=== PATIENT | female | born 1960 | race Caucasian/White ===

== ENCOUNTER 2016-09-02 18:12 | Emergency (ER) | payer MEDICAID ==
[~2016-09-02] VITALS: Ht 165.1 cm; Wt 98.9 kg
[2016-09-02 19:54] LABS: PLATELET COUNT 151 x10^3mcL (130-400)
[2016-09-02 19:55] LABS: RED CELL DISTRIBUTION WIDTH 17.8 % (11.5-14.5)
[2016-09-02 20:08] LABS: CALCIUM 10.2 mg/dL (8.5-10.1); CARBON DIOXIDE 31.1 mmol/L (21-32); CREATININE SERUM 1.1 mg/dL (0.6-1.0); POTASSIUM SERUM 3.7 mmol/L (3.5-5.1)
[2016-09-02 20:15] LABS: ALBUMIN 2.2 g/dL (3.4-5.0); BILIRUBIN TOTAL 0.72 mg/dL (0.20-1.00); TOTAL PROTEIN, SERUM 7.5 g/dL (6.4-8.2)
[2016-09-02 21:02] VITALS: BP 128/74
== END 2016-09-02 21:02 | disposition home or self-care (01) ==
LOC: ED 18:12
PROVIDERS: Emergency Medicine
DX: K29.70 Gastritis, unspecified, without bleeding (principal); K59.00 Constipation, unspecified; C22.0 Liver cell carcinoma; Z88.1 Allergy status to other antibiotic agents
CPT/HCPCS: 83880; J2405; J3010

== ENCOUNTER 2016-10-26 14:09 | Emergency (ER) | payer MEDICAID ==
[2016-10-26 18:07] VITALS: BP 126/55
== END 2016-10-26 18:07 | disposition home or self-care (01) ==
LOC: ED 14:09
DX: S46.912A Strain of unspecified muscle, fascia and tendon at shoulder and upper arm level, left arm, initial encounter (principal); S76.012A Strain of muscle, fascia and tendon of left hip, initial encounter; S39.012A Strain of muscle, fascia and tendon of lower back, initial encounter; I10 Essential (primary) hypertension; E03.9 Hypothyroidism, unspecified; C78.7 Secondary malignant neoplasm of liver and intrahepatic bile duct; Z98.890 Other specified postprocedural states; W01.0XXA Fall on same level from slipping, tripping and stumbling without subsequent striking against object, initial encounter; Y93.89 Activity, other specified; Y92.89 Other specified places as the place of occurrence of the external cause; Y99.8 Other external cause status
CPT/HCPCS: J1885; J3010; Q0162

== ENCOUNTER 2016-12-20 15:05 | Inpatient (IN) | payer OTHER ==
[~2016-12-20] VITALS: Ht 160 cm; Wt 79.5 kg
--- NOTE | 2016-12-20 15:36 | NUR ---
NO SIGNS OF RESP DISTRESS NOTED AT THIS TIME, NO ACTIVE VOMITING. TO ER LOBBY VIA WHEELCHAIR.
--- NOTE | 2016-12-20 17:02 | NUR ---
pt placed on bsc to attempt to provide urine sample.
--- NOTE | 2016-12-20 17:35 | NUR ---
MSE COMPLETED BY DR. BUITRAGO
--- NOTE | 2016-12-20 18:07 | NUR ---
PT AND PTS FAMILY REFUSING ALL XRAYS AND CT SCANS DUE TO THE PT HX OF CANCER. PT REPORTS THAT LAST MONTH SHE ALREADY RECEIVED A CT SCAN. PT CAME INTO THE ED TODAY WITH THE COMPLAINT OF NAUSEA AND VOMITING SINCE YESTERDAY AND DIARRHEA X 2 DAYS. THE PT RPEORTS ALL OF THESE SYMPTOMS BEGAN APPROXIMATELY ONE HOUR AFTER EATING TACO MILLAN AND DRINKING ORANGE JUICE WHICH WAS IN A CAR FOR 2 DAYS[address] BUITRAGO
--- NOTE | 2016-12-20 18:15 | NUR ---
PT REFUSING STRAIGHT CATH AT THIS TIME AND WILL ATTEMPT TO URINATE ROSA. PT REQUESTING WATER BUT I INFORMED THAT PT THAT SHE CANNOT HAVE ANY PO FLUIDS UNTIL SHE DOES NOT HAVE ANY NAUSEA OR EPISODES OF EMESIS.
[2016-12-20 19:05] LABS: BILIRUBIN TOTAL 2.8 mg/dL (0.20-1.00); CALCIUM 9.4 mg/dL (8.5-10.1); CARBON DIOXIDE 18.9 mmol/L (21-32); CREATININE SERUM 2.2 mg/dL (0.6-1.0); TOTAL PROTEIN, SERUM 7.5 g/dL (6.4-8.2)
[2016-12-20 19:06] LABS: ALBUMIN 2.1 g/dL (3.4-5.0); CHOLESTEROL/HDL RATIO 12.2
[2016-12-20 19:08] LABS: POTASSIUM SERUM 5.9 mmol/L (3.5-5.1)
--- NOTE | 2016-12-20 19:10 | NUR ---
PT REMAINS RESTING IN A POSITION OF COMFORT IN LOW POSITIONED BED WITH SIDE RAILS UP X 2 AND CALL LIGHT WITHIN REACH
[2016-12-20 19:25] LABS: BASOPHIL % 0.4 % (0-2); PLATELET COUNT 138 x10^3mcL (130-400)
--- NOTE | 2016-12-20 19:25 | NUR ---
DR SHIRLEY AT BEDSIDE TO DISCUSS PLAN OF CARE.
[2016-12-20 19:28] LABS: RED CELL DISTRIBUTION WIDTH 19.7 % (11.5-14.5)
[2016-12-20 19:42] LABS: T3 TOTAL 0.67 ng/mL
[2016-12-20 19:53] LABS: FREE T4 1.59 ng/dL (0.76-1.46); FREE THYROXINE INDEX 3.4 ug/dL (1.4-4.5); T4(THYROXINE) 10.4 ug/dL (4.7-13.3)
[2016-12-20] MEDS ORDERED: LASIX40 MG PO (20:17)
[2016-12-20] MEDS ORDERED: SINGULAIR10 MG PO (20:18)
[2016-12-20] MEDS ORDERED: SYNTHROID0.112 MG PO (20:19)
--- NOTE | 2016-12-20 20:21 | NUR ---
FAMILY # PAT [phone] ; AARON [phone]. PER PT, OK TO GIVE INFORMATION.
[2016-12-20 20:24] LABS: MAGNESIUM 2.3 mg/dL (1.8-2.4); PHOSPHOROUS 5.5 mg/dL (2.5-4.9)
[2016-12-20] MEDS ORDERED: OXYC (20:29)
--- NOTE | 2016-12-20 20:29 | NUR ---
REPORT GIVEN TO GUY
--- NOTE | 2016-12-20 21:00 | NUR ---
REC'D PT RESTING IN BED. PT IS AAOX4. TELE #3 NSR. LUNG SOUNDS CLEAR. NO SOB NOTED. TRACE EDEMA NOTED TO BLE. BS ACTIVE X4. ABD SOFT AND DISTENDED. PT C/O 8/10 ABD PAIN AND NAUSEA. GENERALIZED WEAKNESS NOTED. USES W/C OR WALKER AT HOME. ECCHYMOSIS NOTED TO BUE. IV NOTED TO RAC AND LH. INTACT AND PATENT. ORIENTED PT TO CALL LIGHT. BED IN LOWEST POSITION. WILL ENDORSE TO PRIMARY RN.
[2016-12-20 21:09] VITALS: BP 119/53
--- NOTE | 2016-12-20 21:42 | NUR ---
PATIENT SITTING AT BEDSIDE WITH RESIDENT IN ROOM THIS TIME CHECKING PATIENT CONDITION. STARTED WITH IV NS INFUSING AT 100ML/HR. NO SIGN OF ACUTE DISTRESS NOTED, BREATHING EASY AND NONLABOR. WILL CONTINUE TO MONITOR. CALL LIGHT WITHIN REACH.
--- NOTE | 2016-12-20 23:30 | NUR ---
CRITICAL LAB RESULT- LACTIC ACID 4.1 DR MCGOVERN MADE AWARE.
--- NOTE | 2016-12-20 23:41 | NUR ---
C/O ABDOMINAL PAIN AR SCALE OF 7/10 PER PATIENT, MEDICATED WITH MORPHINE 2MG IVP PRESCRIBED. WILL CONTINUE TO MONITOR.
--- NOTE | 2016-12-21 00:03 | NUR ---
HAD BM X4 LOOSE AFTER LACTULOSE GIVEN IN ER.
[2016-12-21 00:24] LABS: CALCIUM 10.1 mg/dL (8.5-10.1); CARBON DIOXIDE 18.6 mmol/L (21-32); CREATININE SERUM 2.2 mg/dL (0.6-1.0); POTASSIUM SERUM 4.2 mmol/L (3.5-5.1)
--- NOTE | 2016-12-21 05:12 | NUR ---
HAD BM X5 LOOSE AFTER PATIENT HAD LACTULOSE TAKEN IN ER. CHECKED AT INTERVALS FOR NEEDS AND SAFETY. ALL NEEDS ATTENDED.
[2016-12-21 06:15] VITALS: BP 114/52
--- NOTE | 2016-12-21 07:45 | NUR ---
RECEIVED THE PATIENT AWAKE AND ORIENTED PERSON, PLACE AND TIME. PATIENT DENIED PAIN OR SHORTNESS OF BREATH AT THIS TIME. IVF NS VIA H/L TO RAC. ANOTHER H/L TO LEFT HAND. TELE # 3 READS SINUS RHYTHMS. CALL LIGHT WITHIN REACH. SIDE RAILS UP X3. BED WAS AT LOWEST POSITION.
[2016-12-21 07:56] LABS: CALCIUM 9.8 mg/dL (8.5-10.1); CARBON DIOXIDE 21.5 mmol/L (21-32); CREATININE SERUM 1.8 mg/dL (0.6-1.0); POTASSIUM SERUM 3.3 mmol/L (3.5-5.1)
[2016-12-21 08:23] LABS: BASOPHIL % 0.9 % (0-2)
[2016-12-21 08:25] LABS: PLATELET COUNT 119 x10^3mcL (130-400); RED CELL DISTRIBUTION WIDTH 19.9 % (11.5-14.5)
[2016-12-21 09:27] VITALS: BP 110/64
--- NOTE | 2016-12-21 09:30 | NUR ---
DR. HUYNH AND THE TEAM WERE MAKING ROUND TO SEE THE PATIENT. THE CARE PLAN WAS DISCUSSED WITH THE PATIENT. THE PATIENT AGREED WITH THE PLAN.
[2016-12-21 09:33] VITALS: BP 110/56
--- NOTE | 2016-12-21 11:00 | NUR ---
THE IV SITE TO RAC WAS DISCLODGED WITH CATH INTACT. THE IV LINES WERE CONNECTED TO H/L AT LEFT HAND.
[2016-12-21 12:55] VITALS: BP 123/59
[2016-12-21 13:15] LABS: microscopic required? YES; urine erythrocyte NEGATIVE (NEGATIVE)
[2016-12-21 13:30] LABS: AMPHETAMINE QUAL UR NONE DETECTED (NEG <=1000)
[2016-12-21 16:59] VITALS: BP 119/48
--- NOTE | 2016-12-21 18:36 | NUR ---
THE PATIENT WAS RESTING IN BED WITHOUT DISTRESS NOTED AT THIS TIME. THE FAMILY MEMBERS AT BEDSIDE. PATIENT C/O ACHING TO BACK; NORCO 1 TAB WAS ADMINISTERED TO THE PATIENT BUT THE PAIN WAS NOT BETTER. THEREFORE, MORPHINE 2MG IVP WAS GIVEN TO THE PATIENT AFTER THAT WITH RELIEF.
--- NOTE | 2016-12-21 19:27 | NUR ---
RECEIVED PATIENT IN BED AWAKE ALERT AND ORIENTED WITH NO C/O ABDOMINAL DISCOMFORT THIS TIME. FAMILY MEMBERS AT BEDSIDE. TELE# 3,NSR ON MONITOR. ABDOMEN DISTENDED AND SOFT WITH ACTIVE BS. TRACED EDEMA NOTED TO BLE. CLEAR BS SATTING AT 98% RA. IV TO LH INTACT AND INFUSING WELL. WILL CONTINUE TO MONITOR. CALL LIGHT WITHIN REACH.
[2016-12-21 21:00] VITALS: BP 109/47
--- NOTE | 2016-12-21 23:23 | NUR ---
PATIENT REQUESTING SLEEPING PILLS, DR MCGOVERN MADE AWARE,WAITING FOR ORDERS.
--- NOTE | 2016-12-22 01:59 | NUR ---
SLEEPING THIS TIME AFTER SLEEPING PILLS AMBIEN PO WAS GIVEN. WILL CONTINUE TO MONITOR.
[2016-12-22 05:07] VITALS: BP 121/52
--- NOTE | 2016-12-22 05:10 | NUR ---
SLEPT AT LONG INTERVALS, HAD BM X1 . DENIES PAIN THE ENTIRE SHIFT. ALL NEEDS ATTENDED.
[2016-12-22 07:32] LABS: BASOPHIL % 0.2 % (0-2)
[2016-12-22 07:44] LABS: PLATELET COUNT 112 x10^3mcL (130-400); RED CELL DISTRIBUTION WIDTH 19.4 % (11.5-14.5)
--- NOTE | 2016-12-22 07:46 | NUR ---
MICROBIOLOGY CALLED: PT IS MRSA POSITIVE NARES. WILL NOTIFY RESIDENT DURING ROUNDS. A+OX4, DENIES PAIN, NAUSEA, SOB, AND HEADACHE, TELE #3, NSR, TRACE EDEMA BLE, SCDS IN PLACE, LUNG SOUNDS CLEAR, TOLERATING ROOM AIR, BOWEL SOUNDS ACTIVE, ABDOMEN DISTENDED AND SOFT, USES BEDSIDE COMMODE, GENERALIZED WEAKNESS, USES WHEELCHAIR/WALKER, ECCHYMOSIS BUE, IV IN LH WITH NS @ 10 ML/HR, SITE WNL, PLT 112.
[2016-12-22 08:04] LABS: CARBON DIOXIDE 22.6 mmol/L (21-32); CREATININE SERUM 1.7 mg/dL (0.6-1.0); MAGNESIUM 1.9 mg/dL (1.8-2.4); PHOSPHOROUS 3.8 mg/dL (2.5-4.9); POTASSIUM SERUM 4.5 mmol/L (3.5-5.1)
[2016-12-22 09:00] VITALS: BP 136/96; BP 99/49
--- NOTE | 2016-12-22 10:19 | NUR ---
PT RESTING IN BED, NO RESPIRATORY DISTRESS NOTED, COMPLAINING OF 5/10 PAIN, NORCO GIVEN.
[2016-12-22 10:25] VITALS: Ht 160 cm; Wt 79.5 kg
[2016-12-22 11:28] VITALS: BP 119/94
[2016-12-22 12:00] VITALS: BP 94/41
--- NOTE | 2016-12-22 13:12 | NUR ---
PT RESTING IN BED, NO RESPIRATORY DISTRESS NOTED, DENIES PAIN, NAUSEA, SOB, AND HEADACHE. FAMILY AT BEDSIDE.
--- NOTE | 2016-12-22 14:49 | NUR ---
PT RESTING IN BED, NO RESPIRATORY DISTRESS NOTED, COMPLAINING OF PAIN, NORCO GIVEN.
--- NOTE | 2016-12-22 15:52 | NUR ---
PT RESTING IN BED, NO RESPIRATORY DISTRESS NOTED, PAIN HAS IMPROVED, DENIES SOB, NAUSEA, AND HEADACHE.
--- NOTE | 2016-12-22 16:17 | NUR ---
ASSISTED PT TO BEDSIDE COMMODE, CHANGED BED LINENS.
[2016-12-22 16:30] VITALS: BP 124/54
--- NOTE | 2016-12-22 17:46 | NUR ---
Initial Nutrition Assessment Dx: Acute renal failure, severe hyponatremia PMHx: HTN, Hypothyroidisim, Chronic back pain status post L4/L5 fusion. Liver carcinoma with bone mets PSHx: , L4/L5 fusion, hysterectomy Labs: Na:127L, Cl 97L, BL, A1C: 4.8, BUN:46H, Cr:1.7H, Alb:2.1L, T Bili: 2.8H, AST:591H, ALT:79H, TH, Chol:244H, LDL:178H, HDL:20L, Amylase:119H, Lipase:681H, Lac Acid:4.1H, Ammonia:118H, Alk Phos 558H Meds: Colace, Lactinex, Lactulose, Lipitor, Mylicon, Phoslo, Prilosec, NS IV, Zofran Diet: Regular PO Intake: (12/21) B: 50% L: 50% D: 100% (12/22) L: 80% Ht: 63in Wt: 175lb BMI: 31kg/m2 (Obese Class I) IBW: 115lb %IBW: 152% Adj BW: 130lb Estimated Dry Weight: 150 lb (per family after pt is status post paracentesis) Age: 56 y/o F Food Allergies: none Skin: Intact. Marvin 19 Edema: Trace on bilateral lower extremities GI: Last BM 12/22 Nursing Trigger: Unintentional weight loss >10lb in past month; Poor PO intake >3 days. Pt admitted with diagnosis of GI with nausea, vomiting possibly secondary to gastroenteritis per H&P notes. Current liver carcinoma with mets to bones, no current treatment per H&P notes. Positive for MRSA per progress note. business analytics intern interviewed pt who was noticeably swollen in the abdomen and who had difficulty with speech. Family member was present and analysis intern was able to obtain reliable information from her. Per pt due to ascites she gets stomach tapped 1x per week. Pt states not interested in treatment for CA. Appetite is fair some days and prefers eggs, cheese, and spaghetti. Pt stated is scared of chewing and choking, has not choked nor coughed but pt is cautious while eating. Problems with: N: Yes, x1 V: No D: No C: No Problems with: Chewing: Yes Swallowing: Yes Current Appetite: Poor-Fair Recent wt change: +25lb due to ascites (within a month) %wt change: 17% gain Vitamin/Supplement use: Milk thistle, Calcium, Ensure x3-4 per week Diet at home: Regular Physical activity: Uses walker or wheelchair Education: The supply chain intern encouraged pt to have small frequent meals with snacks in between. The analysis intern discussed benefits of oral supplement and pt agreeable to Boost Plus BID. Inside Upholsterer asked patient food preference to increase PO intake and asked for need of swallow evaluation, pt agreeable to evaluation and to mechanical soft, chopped meals. Estimated Nutritional Needs Based on: Estimated Dry Weight 150lb, 68.2kg Energy: 4407-5501 kcal/d (30-35 kcal/kg for Repletion and CA) Protein: 54-89 g/d (0.8-1.3 g/kg current liver CA without treatment and ascites) Fluid: 1364ml/d (20 ml/kg) or per doctor Nutrition Diagnosis: Increased nutritional needs related to catabolic state secondary to current liver CA with mets to bones as evidenced by AST 591, Alk Phos 558 and Ammonia 118. Intervention: 1. Recommend mechanical soft, chopped diet 2. Consider swallow evaluation per FINANCIAL SALES REPRESENTATIVE 3. Recommend Boost Plus BID (360kcal, 14g protein per serving) Monitor/ Evaluate: Goal: PO and supplement intake to meet at least 75% of estimated needs Monitor: PO intake and tolerance, Labs, GI function F/U in 3-5 days as Moderate risk 12/25-
--- NOTE | 2016-12-22 17:46 | NUR ---
1. Recommend mechanical soft, chopped diet 2. Consider swallow evaluation per TAPER AND FLOATER 3. Recommend Boost Plus BID (360kcal, 14g protein per serving)
--- NOTE | 2016-12-22 18:30 | NUR ---
PT RESTING IN BED, NO RESPIRATORY DISTRESS NOTED.
--- NOTE | 2016-12-22 19:54 | NUR ---
PT RECIEVED AAO EG RESP NO SOB,RED RESP NO SOB,HL TO THE LT HAND WITH THE SITE PATENT AND INTACT,PT WITH ECCHYMOSIS TO SY UPPER EXTRE,ABDO IS SOFT OBESE WITH ACTIV E BOWEL SOUNDS,HOB,KEPT CLEAN AND DRY TO TOUCH,PT HAS A BSC ABLE TO USE,BED WAS PUT IN THE LOW POSITION AND LOCKED AND MADE COMFORTABLE IN BED,WILL CONTINUE TO MONITOR.
[2016-12-22 21:01] VITALS: BP 102/55
[2016-12-23 05:43] VITALS: BP 108/54
--- NOTE | 2016-12-23 06:48 | NUR ---
PT HAD A RESTING NIGHT NO CHANGE IN CONDITION AT THIS TIME.KEPT CLEAN ANSD DRY TO TOUCH AND WILL CONTINUE TO MONITOR.
--- NOTE | 2016-12-23 07:20 | NUR ---
ALERT AND ORIENTED. HR 70. PULSES PRESENT, TRACE EDEMA BLE, CAP REFILL <3 SEC. NO SOB NOTED. LBM 12/22/16, REPORTED DIARRHEA, COMMODE AT BED SIDE. GENERALIZED WEAKNESS. ECCHYMOSIS TO BUE AND REDNESS ON RIGHT UPPER ARM.REPORTED PAIN 01/08. IV LH NOT WORKING WILL START NEW IV.
[2016-12-23 07:38] LABS: CALCIUM 8.9 mg/dL (8.5-10.1); CARBON DIOXIDE 19.7 mmol/L (21-32); CREATININE SERUM 1.3 mg/dL (0.6-1.0); MAGNESIUM 2.1 mg/dL (1.8-2.4); PHOSPHOROUS 2.7 mg/dL (2.5-4.9); POTASSIUM SERUM 3.9 mmol/L (3.5-5.1)
[2016-12-23 09:30] VITALS: BP 111/54
--- NOTE | 2016-12-23 11:15 | NUR ---
IV DC CATHETER INTACT. BED BATH DONE BY FIRESETTER, SITTING UP IN CHAIR AT BED SIDE. REPORTED BM, STOOL FORMED. BACK INTO BED WITH MINIMAL ASSIST. NO DISTRESS NOTED, FAMILY AT BEDSIDE.
[2016-12-23 11:49] LABS: BASOPHIL % 3.7 % (0-2); PLATELET COUNT 110 x10^3mcL (130-400); RED CELL DISTRIBUTION WIDTH 18.6 % (11.5-14.5)
--- NOTE | 2016-12-23 13:51 | NUR ---
UP TO BSC X 2. LOOSE WATERY STOOLS.
--- NOTE | 2016-12-23 16:06 | NUR ---
REQUESTING TO HAVE PAIN MEDICATION CHANGED TO PERCOCET 10/325MG. PAGED DR COLES. ASSISTED WITH REPOSITIONING.
--- NOTE | 2016-12-23 16:09 | NUR ---
SPOKE WITH DR COLES, MADE AWARE PATIENT REQUESTING PAIN MEDICATION CHANGED TO PERCOCET.
--- NOTE | 2016-12-23 16:22 | NUR ---
ALERT AND ORIENTED X 4. REPORTED PAIN 9/10, WAITING FOR PERCOCET ORDER. PATIENT REPORTED [employer] DOES NOT WORK.
--- NOTE | 2016-12-23 16:24 | NUR ---
MEDICATED WITH PERCOCET FOR 8/10 PAIN.
--- NOTE | 2016-12-23 18:01 | NUR ---
* ST NOTE * Pt seen at bedside with MD present. Bedside dysphagia and oral mechanism exams completed. See evaluation report for further details. Pt tolerating 3/3 alternating PO trials of regular solid saltine crackers w/out s/s of aspiration. Pt also tolerating 2/2 alternating PO trials of thin liquid water via a cup w/out s/s of aspiration, exhibiting clear voicing WFL w/out wet or gargly vocal quality after PO intake of thin liquids. Pt education completed regarding safe swallow compensatory strategies pt may employ to further aid pt with swallow function, with pt verbalizing understanding of clinician's recommendations. It is thus recommended pt remain on current PO diet consistency of regular solids with thin liquids for all meals, requiring reminders/cueing prior to PO intake to assure aspiration precautions are in place as well as to assure pt's dentures are in place. Pt and caregivers/nsg education completed regarding results of evaluation; benefits of abiding by aspiration precautions; and prognosis for improvement; with pt and caregivers/nsg verbalizing understanding and agreement with clinician's recommendations. Recommend: - Continue PO diet consistency of Regular solids with Thin liquids for all meals - Assure pt's dentures are in prior to PO intake - Remind/cue pt to abide by aspiration precautions prior to each meal/PO intake No further ST follow up recommended at this time. G8996 CI G8997 CH G8998 NOMS Level 1 Time in/Out 17:25 - 18:10
--- NOTE | 2016-12-23 18:10 | NUR ---
PT IN BED EATING DINNER, MEDICATION TOLERATED WELL. NO DISTRESS NOTED, BREATHING UNLABORED.
[2016-12-23 18:26] VITALS: BP 119/53
--- NOTE | 2016-12-23 18:50 | NUR ---
IV INSERTED RFA, FLUSHES WELL, SL, TOLERATED WELL.
--- NOTE | 2016-12-23 19:47 | NUR ---
PT CURRENTLY RESTING IN BED, NO ACUTE DISTRESS. A/O X4. NO TELE, MED/SURG. DENIES CHEST PAIN. PULSES PALPABLE IN ALL EXTREMITIES, NO EDEMA NOTED. LUNG SOUNDS CTA BILATERALLY, DENIES SOB. BOWEL SOUNDS ACTIVE, LAST BM 12/23/16, LOOSE STOOLS. VOIDING WELL. GENERALIZED WEAKNESS NOTED. BUE ECCHYMOSIS NOTED. PT C/O ABD PAIN 08/08, DENIES PAIN MEDICATION AT THIS TIME. IV PATENT AND INTACT. BED IN LOWEST POSITION, SIDE RAILS UP X2, SCDS IN PLACE, CALL LIGHT WITHIN REACH. WILL CONTINUE TO MONITOR.
[2016-12-23 20:57] VITALS: BP 113/48
--- NOTE | 2016-12-24 00:38 | NUR ---
PT CURRENTLY RESTING IN BED, NO ACUTE DISTRESS. WILL CONTINUE TO MONITOR.
[2016-12-24 05:47] VITALS: BP 122/53
--- NOTE | 2016-12-24 06:19 | NUR ---
PT SLEPT PERIODICALLY THROUGHOUT NIGHT, NO ACUTE DISTRESS. ALL NEEDS MET AND ATTENDED TO. NO SIGNIFICANT CHANGES. IV PATENT AND INTACT. MEDICATED PAIN PER EMAR. BED IN LOWEST POSITION, SIDE RAILS UP X2, SCDS IN PLACE, CALL LIGHT WITHIN REACH. WILL ENDORSE CARE TO ONCOMING NURSE.
[2016-12-24 07:16] LABS: BASOPHIL % 0.7 % (0-2)
[2016-12-24 07:37] LABS: CALCIUM 8.7 mg/dL (8.5-10.1); CARBON DIOXIDE 19.5 mmol/L (21-32); CREATININE SERUM 1.3 mg/dL (0.6-1.0); PHOSPHOROUS 2.5 mg/dL (2.5-4.9); POTASSIUM SERUM 3.8 mmol/L (3.5-5.1)
[2016-12-24 07:43] LABS: PLATELET COUNT 110 x10^3mcL (130-400); RED CELL DISTRIBUTION WIDTH 19.6 % (11.5-14.5)
--- NOTE | 2016-12-24 08:31 | NUR ---
DR COLES AND THE TEAM OF PHYSICIANS TALKED TO THE PATIENT THIS MORNING. ALL QUESTIONS WERE ANSWERED AT THIS TIME. DISCHARGE WAS DISCUSSED AND PATIENT IS AGREEABLE TO PLAN.
[2016-12-24 09:32] VITALS: BP 126/51
[2016-12-24] MEDS ORDERED: ALDACTONE50 MG PO (10:57)
[2016-12-24] MEDS ORDERED: HIB240 TP (10:59)
[2016-12-24] MEDS ORDERED: BACO TOP (11:06)
[2016-12-24] MEDS ORDERED: LASIX20 MG PO (11:15)
[2016-12-24] MEDS ORDERED: LAC30L PO (11:18)
--- NOTE | 2016-12-24 12:14 | NUR ---
PT RECEIVED. PT IS ALERT AND ORIENTED X4. RESPIRATIONS ARE EVEN AND UNLABORED. PATIENT DOES NOT APPEAR IN ACUTE DISTRESS AT THIS TIME. PT IV IS SALINE LOCKED. DRESSING IS INTACT. ALL SAFETY AND COMFORT MEASURES ARE IN PLACE. CALL LIGHT WIHIN REACH. WILL CONTINUE TO MONITOR PATIENT.
[2016-12-24 13:07] VITALS: BP 126/51
[2016-12-24] MEDS ORDERED: PERCOCET1 TA5 PO (13:08)
[2016-12-24 13:20] VITALS: BP 126/51
--- NOTE | 2016-12-24 15:12 | NUR ---
PHYSICAL THERAPY DAILY NOTES CO-SIGN All documentation done by the Hook Up Driver for 12/24/16 has been reviewed. I agree with the documentation. Reviewed/Co-Signed by: Herb Acevedo PT Documentation Done by: ODILON NELSON PT EDUCATED ON SAFETY WITH MOBILITY, PROGRESSIGN STEADILY.
== END 2016-12-24 14:32 | disposition home health service (06) | DRG 279 ==
LOC: ED 15:05 → MU 19:37 → DU 19:37 → MU 20:47 → DU 21:00 → MU 12-23 06:38
PROVIDERS: Family Medicine; Specialist; ADMIT Family Medicine
DX: K72.90 Hepatic failure, unspecified without coma (principal); N17.0 Acute kidney failure with tubular necrosis; E43 Unspecified severe protein-calorie malnutrition; C79.51 Secondary malignant neoplasm of bone; C79.00 Secondary malignant neoplasm of unspecified kidney and renal pelvis; R18.8 Other ascites; C22.7 Other specified carcinomas of liver; E87.2 Acidosis; E87.1 Hypo-osmolality and hyponatremia; K76.6 Portal hypertension; K85.90 Acute pancreatitis without necrosis or infection, unspecified; E87.5 Hyperkalemia; E78.5 Hyperlipidemia, unspecified; M54.5 Low back pain; G89.29 Other chronic pain; Z98.1 Arthrodesis status; E83.39 Other disorders of phosphorus metabolism; N39.0 Urinary tract infection, site not specified; Z22.322 Carrier or suspected carrier of Methicillin resistant Staphylococcus aureus; K74.69 Other cirrhosis of liver; B96.20 Unspecified Escherichia coli [E. coli] as the cause of diseases classified elsewhere; Z53.29 Procedure and treatment not carried out because of patient's decision for other reasons; K74.60 Unspecified cirrhosis of liver; K52.9 Noninfective gastroenteritis and colitis, unspecified; D69.6 Thrombocytopenia, unspecified; E66.9 Obesity, unspecified; J44.9 Chronic obstructive pulmonary disease, unspecified; E03.9 Hypothyroidism, unspecified; I10 Essential (primary) hypertension; K21.9 Gastro-esophageal reflux disease without esophagitis; Z90.710 Acquired absence of both cervix and uterus; Z79.899 Other long term (current) drug therapy; Z88.1 Allergy status to other antibiotic agents; Z88.7 Allergy status to serum and vaccine; Z80.3 Family history of malignant neoplasm of breast; Z80.9 Family history of malignant neoplasm, unspecified; Z82.5 Family history of asthma and other chronic lower respiratory diseases; Z82.49 Family history of ischemic heart disease and other diseases of the circulatory system; Z87.891 Personal history of nicotine dependence; Z68.31 Body mass index [BMI] 31.0-31.9, adult
CPT/HCPCS: 83880; 84439; 92610; 97110-GP; 97116-GP; J0696; J1815; J1885; J2270; J2405; J3010; J3480; J3490; J7030; Q0092; Q0163